=== PATIENT | male | born 1950 | race Caucasian/White ===

== ENCOUNTER → 2016-11-09 | Day surgery (SDC) | payer MEDICARE, BC ==
[~2016-11-09] VITALS: Ht 170.2 cm; Wt 71.9 kg
[~2016-11-09] MED LIST: *ONDANSETRON 4 MG VIAL PERIprocedural Use ONLY ONE; ACETAMINOPHEN/HYDROcodone 325 MG/5 MG TAB ONE; ACETAMINOPHEN/HYDROcodone 325 MG/5 MG TAB PO PRN; ALBUAER3 INH; BUPIVACAINE HCL PF 0.5% 30 ML VIAL ONE; CEPH-460 PO; CHLORHEXIDINE GLUCONATE 2 % 1 PACK (2 CLOTHS) TOPICAL PRN; CIAL5TAB PO; HYDR-3288 PO; INSULIN HUMAN REGULAR 1,000 UNITS/10 ML VIAL SQ PRN; LACTATED RINGER'S 1000 ML INJ 1,000 ML IV ONE; LACTATED RINGER'S 1000 ML IV PRN; LIDOCAINE HCL 2% 50 ML VIAL ONE; MELO-1 PO; MEPERIDINE HCL 50 MG/ML VIAL IM PRN; METOPROLOL TARTRATE 25 MG TAB PO PRN; NEOMYCIN/POLYMYXIN 1 ML G.U. IRRIGANT TOPICAL ONE; ONDANSETRON HCL 4 MG/2 ML VIAL IV PUSH ONE; POVIDONE IODINE 5% (ANTISEPSIS KIT) 4 APPLICATIONS EACH NARE PRN; PROPOFOL 200 MG/20 ML AMP IV ONE; RESP: ALBUTEROL 2.5 MG/3 ML NEB (SCH) ONE; SODIUM CHLORID 0.9% 500 ML IV PRN; SUGAMMADEX SODIUM 200 MG/2 ML VIAL IV PUSH ONE; TRIAMCINOLONE ACETONIDE 40 MG/ML VIAL ONE; ceFAZolin 1,000 MG/NS 100 ML IV SCH; ceFAZolin INJ 1,000 MG VIAL IV ONE; ePHEDrine/NS 25 MG/5 ML SYR IV ONE; fentaNYL CITRATE 250 MCG/5 ML AMP ONE
[2016-11-09 08:58] VITALS: BP 147/79; PULSE 74; RESP 16; TEMP 98.4; O2SAT 97
--- NOTE | 2016-11-09 10:42 | EKG ---
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
[2016-11-09 14:00] VITALS: BP 146/70; PULSE 60; RESP 18; TEMP 98; O2SAT 99
--- NOTE | 2016-11-10 06:09 | MP ---
cc: JUAN M DAVIS III, M.D. DATE OF OPERATION 11/09/2016 PREOPERATIVE DIAGNOSES 1. Left ulnar neuropathy. 2. Left carpal tunnel syndrome. PROCEDURE 1. Left ulnar nerve release at the elbow with submuscular transposition 2. Left open carpal tunnel release. SURGEON Juan M Davis III, MD PROCEDURE The patient was brought to the operating room, placed on the operating table after the correct site and side of surgery were verified by members of each team in the room multiple times including the patient and myself and, after adequate preop markings and preoperative written consent were verified by everyone, after adequate preoperative time-out was performed to everyone's satisfaction, after adequate general anesthesia was achieved, the left upper extremity was prepped and draped in traditional sterile surgical fashion. A 50/50 mixture of 2% plain lidocaine and 0.5% plain Marcaine was infiltrated in the skin and subcutaneous tissues in the area of the planned incisions. The limb was exsanguinated with a gentle Suleman wrap. A highly placed, well-padded axillary tourniquet was inflated to 200 mmHg for a total of 35 minutes. A longitudinally oriented incision at the base of palm was made and carried down through the skin and subcutaneous tissue. Blunt dissection was performed. The palmar fascia was retracted in opposite directions. The transverse carpal ligament was identified and transected in its midline in its entirety from its proximal-most to its distal-most extents, completely freeing the carpal tunnel contents which were under obvious compression with visible rebound once fully released. There was no mass effect or other anatomic abnormality identified. Thorough irrigation with saline was performed and the skin edges were reapproximated using running 4-0 nylon sutures. Attention was then paid to the left elbow where a hockey-stick shaped incision was May 1 cm anterior to the ulnar groove. Blunt dissection was performed. Bipolar electrocautery was used as needed. Crossing nerve fibers were all preserved. The ulnar groove beneath the lateral epicondyle was identified and the ulnar nerve was visualized and secured and dissected free proximally from the arcade of [place], distally to the bifurcation in the forearm musculature. An obviously under compression along the entire ulnar groove as there were some tortuous vein within soft tissue encasement compressing it. This was fully released and then transposed. Flaps were made in the flexor retinaculum and a bed in the muscle made. The intermuscular septum was also divided in the usual fashion. The nerve was then transposed anteriorly to the axis rotation of the elbow, placed within the bed of muscle and then secured by closing the flaps with 2-0 Vicryl sutures in a [id number] fashion. They were secured in a way that there is no kinking and there was free excursion. Passive range of motion does not reveal any bunching up of the nerve, kinking, or subluxation. Thorough irrigation was performed. 2-0 Vicryl suture was used to tack subcutaneous fat down dorsally to the nerve at the reinforcement. The axillary tourniquet was released. The hand and all the fingers became immediately soft, pink and warm and had brisk capillary refill. 1/4-inch Rich drain divided in half longitudinally was then placed deep within the wound and brought out distally. The hand and arm were thoroughly cleansed and dried. Thorough irrigation was performed again. The skin edges were reapproximated using 3-0 Vicryl suture in the deep subcutaneous tissue, followed by running 4-0 nylon suture to reapproximate the skin edges around the drain. The hand and arm were thoroughly cleansed and dried. Betadine Adaptic dressings were applied on top of the wound, followed by a bulky soft dressing and then a long-arm posterior splint was made keeping the elbow flexed 60-90 degrees, leaving the hand and all the fingers free. Capillary refill less than 2 seconds at all times. There was no evidence of any bleeding. The patient was awakened from anesthesia and transported to the Post-Anesthesia Care Unit awake and in stable condition. At the end of the case sponge, needle and instrument counts were correct at the end of the case as reported by the nurses in the room. MD TONY Wilson III/JACQUELINE /12:32 PM /5:58 AM
== END | disposition home or self-care (01) ==
LOC: HSDC 08:15
PROVIDERS: ATTEND Orthopaedic Surgery Hand Surgery
DX: G56.22 Lesion of ulnar nerve, left upper limb (principal); G56.02 Carpal tunnel syndrome, left upper limb; R94.31 Abnormal electrocardiogram [ECG] [EKG]; Z01.810 Encounter for preprocedural cardiovascular examination
CPT/HCPCS: 01710; 64718; 64721; 93005; 94664; J0690; J2405; J3010; J3301; J7120; J7613